=== PATIENT | female | born 1960 | race Hispanic/Latino ===

== ENCOUNTER 2023-08-09 07:02 | Day surgery (SDC) | payer OTHER ==
[2023-08-08 11:28] LABS: BASOPHILS # (AUTO) 0.08 K/uL (0.00-0.20); BASOPHILS % (AUTO) 1.5 % (0.0-5.0); EOSINOPHILS # (AUTO) 0.23 K/uL (0.00-0.70); EOSINOPHILS % (AUTO) 4.3 % (0.0-8.0); HEMATOCRIT 44.8 % (36-48); IMMATURE GRANULOCYTE ABSOLUTE 0.01 K/uL (0-1); LYMPHOCYTES # (AUTO) 1.9 K/uL (1.0-4.8); LYMPHOCYTES % (AUTO) 34.4 % (21.0-51.0); MEAN CORPUSCULAR HEMOGLOBIN 33.3 pg (27.0-33.0); MEAN CORPUSCULAR HGB CONC 34.2 g/dL (32.0-36.0); MEAN CORPUSCULAR VOLUME 97.4 fL (79-99); MONOCYTES # (AUTO) 0.5 K/uL (0.1-1.0); MONOCYTES % (AUTO) 9.1 % (3.0-13.0); NEUTROPHILS # (AUTO) 2.7 K/uL (1.8-7.7); NEUTROPHILS % (AUTO) 50.5 % (40.0-77.0); PLATELET COUNT (AUTO) 266 K/uL (130-400); RED CELL DISTRIBUTION WIDTH 12.2 % (11.0-15.5); WHITE BLOOD COUNT (AUTO) 5.4 K/uL (4.8-10.8)
[2023-08-08 11:47] LABS: INR <= 0.93 (0.85-1.15); PROTHROMBIN TIME 10.2 SEC (9.6-11.6)
[2023-08-08 11:48] LABS: PARTIAL THROMBOPLASTIN TIME 27.5 SEC (26.3-35.5)
[2023-08-08 11:58] LABS: CREATININE 0.7 mg/dL (0.5-1.0); POTASSIUM 4.7 mmol/L (3.5-5.1)
[2023-08-08 12:30] VITALS: BP 143/79; PULSE 74; RESP 17
[2023-08-09] VITALS (14 sets, daily range): BP systolic 109–126; BP diastolic 54–73; PULSE 58–82; RESP 15–17
[~2023-08-09] VITALS: Ht 160 cm; Wt 58.8 kg
[~2023-08-09 07:02] MED LIST: DIPH25CA85 PO; ESTR-28 PO
[2023-08-09] MEDS ORDERED: PROPOFOL 10 MG/ML 20ML VIAL IV ONE (09:20)
[2023-08-09] MEDS ORDERED: ROCURONIUM BROMIDE 10MG/1ML 5ML VL ONE ×2 (09:20→11:11)
[2023-08-09] MEDS ORDERED: MIDAZOLAM HCL 1 MG/ML 2ML VIAL ONE (09:20)
[2023-08-09] MEDS ORDERED: LIDOCAINE PF 100MG/5ML (2%) SYRINGE 5ML ONE (09:20)
[2023-08-09] MEDS ORDERED: FENTANYL CITRATE PF 50 MCG/1 ML 5ML AMP IV ONE (09:22)
[2023-08-09] MEDS: LACTATED RINGERS 1000ML 1,000 ML IV ONE (10:29)
[2023-08-09] MEDS ORDERED: NEOSTIGMINE METHYLSULFATE 1MG/ML IV ONE (11:11)
[2023-08-09] MEDS ORDERED: ONDANSETRON 4MG INJ ONE (11:11)
[2023-08-09] MEDS ORDERED: GLYCOPYRROLATE 0.2 MG/ML 5 ML VIAL ONE (11:11)
[2023-08-09] MEDS ORDERED: PHENYLEPHRINE HCL 10 MG/ML 1ML VIAL IV ONE (11:11)
[2023-08-09] MEDS ORDERED: DEXAMETHASONE SOD PHOSPHATE 10MG/ML 1ML VIAL ONE (11:11)
[2023-08-09] MEDS: CEFAZOLIN SODIUM 2 GM VIAL ONE (11:15)
[2023-08-09] MEDS: EPINEPHRINE PF 1MG (1:1,000) 1 MG/ML AMP ONE ×2 (11:42)
[2023-08-09] MEDS: DiphenhydrAMINE HCL 50 MG/ML VIAL ONE (14:35)
[2023-08-09] MEDS ORDERED: DOCU-116 PO (14:52)
[2023-08-09] MEDS ORDERED: CYCL5TAB PO (14:52)
[2023-08-09] MEDS ORDERED: HYDR-4060 PO (14:52)
== END 2023-08-09 15:35 | disposition home or self-care (01) ==
LOC: DAH 07:02
PROVIDERS: ATTEND Student in an Organized Health Care Education/Training Program
DX: M75.121 Complete rotator cuff tear or rupture of right shoulder, not specified as traumatic (principal); M65.811 Other synovitis and tenosynovitis, right shoulder; M19.011 Primary osteoarthritis, right shoulder; M25.811 Other specified joint disorders, right shoulder; M75.21 Bicipital tendinitis, right shoulder; M25.511 Pain in right shoulder; M25.611 Stiffness of right shoulder, not elsewhere classified; F41.9 Anxiety disorder, unspecified; Z88.0 Allergy status to penicillin; Z91.018 Allergy to other foods; Z82.49 Family history of ischemic heart disease and other diseases of the circulatory system; Z72.89 Other problems related to lifestyle; Z87.891 Personal history of nicotine dependence; Z82.3 Family history of stroke; Z83.3 Family history of diabetes mellitus; Z83.79 Family history of other diseases of the digestive system
CPT/HCPCS: 36415; 80048; 85025; 85610; 85730; A4565; J0171; J1100; J1200; J2001; J2250; J2371; J2405; J2704; J2710; J3010; J3490; J7030; J7120; A4213; A4215; A4221; A4222; A4223; A4452; A4600; A4649; A4663; A4930; A5120; A6223; C1713; J0690

== ENCOUNTER → 2024-04-17 | Outpatient (CLI) | payer OTHER ==
[~2024-04-17] MED LIST changes: +CYCL5TAB3 PO; +DOCU-116 PO; +HYDR-4060 PO
--- NOTE | 2024-04-20 11:20 | HMCIMG ---
Exam Type: MAMMO SCREENING BILATERAL Clinical Information: Baseline Comparison: None Technique: Bilateral mammogram with CAD was performed with CC and MLO projections. FINDINGS: Breast parenchyma is heterogeneously dense which lowers the sensitivity of the mammographic examination. No dominant mass or suspicious microcalcification identified. There is no nipple retraction or skin thickening. Benign-appearing calcifications are seen. CAD shows no worrisome regions. IMPRESSION: 1. No mammographic signs of malignancy. 2. Routine follow-up recommended. CATEGORY 2: BENIGN FINDINGS Note: A negative x-ray should not delay biopsy if a dominant or clinically suspicious mass is present, since 8-10% of cancers are not identified by mammography. Dense breasts may obscure an underlying neoplasm.
== END | disposition home or self-care (01) ==
LOC: RAH 14:39
PROVIDERS: ATTEND Obstetrics & Gynecology
DX: Z12.31 Encounter for screening mammogram for malignant neoplasm of breast (principal); R92.333 Mammographic heterogeneous density, bilateral breasts
CPT/HCPCS: 77067